=== PATIENT | female | born 1985 | race Two or more races ===

== ENCOUNTER 2016-12-14 10:44 | Emergency (ER) | payer OTHER ==
[~2016-12-14] VITALS: Ht 157.5 cm; Wt 65.8 kg
[2016-12-14 11:16] VITALS: BP 113/73
[2016-12-14] MEDS ORDERED: DEXAMETHASONE SOD PHOS 20 MG/5 ML VIAL. IM ONE (11:30)
[2016-12-14] MEDS ORDERED: PRED50TA PO (11:52)
[2016-12-14] MEDS ORDERED: HYDR25TA PO (11:52)
[2016-12-14] MEDS ORDERED: TRIA15OI TP (11:52)
[2016-12-14] MEDS ORDERED: CETI10TA22 PO (11:52)
--- NOTE | 2016-12-14 11:52 | PHYS DOC ---
Past Medical History Past Medical History: Other Additional Past Medical Histor: EPILEPSY Past Surgical History: Cholecystectomy, Other Additional Past Surgical Histo: BREAST AUGMENTATION, ABD TUCK Alcohol Use: Rarely Drug Use: None Adult General Chief Complaint Chief Complaint: SKIN RASH/ABSCESS HPI HPI Patient is a 31 year old female who presents with a pruritic rash that began 2 days ago after going hiking. Review of Systems Review of Systems Constitutional: Denies fever or chills [] Eyes: Denies change in visual acuity, redness, or eye pain [] Musculoskeletal: Denies back pain or joint pain [] Integument: rash Neurologic: Denies headache, focal weakness or sensory changes [] Endocrine: Denies polyuria or polydipsia [] Current Medications Current Medications Current Medications Medications (Trade) Dose Ordered Sig/Abdulaziz Start Time Stop Time Status Last Admin Dose Admin Dexamethasone Sodium Phosphate (Decadron) 10 mg 1X ONCE 12/14/16 11:30 12/14/16 11:32 DC Allergies Allergies Allergies Coded Allergies Type Severity Reaction Last Updated Verified Penicillins Allergy Severe Anaphylaxis 12/14/16 Yes cephalexin Allergy Severe Anaphylaxis 12/14/16 Yes nitrofurantoin Allergy Severe Anaphylaxis 12/14/16 Yes zolpidem Allergy Severe Anaphylaxis 12/14/16 Yes Physical Exam Physical Exam Constitutional: Well developed, well nourished, no acute distress, non-toxic appearance. [] HENT: Normocephalic, atraumatic, bilateral external ears normal, oropharynx moist, no oral exudates, nose normal. [] Skin: Patient has mild amount of erythematous macular rash on the right buttock. Back: No tenderness, no CVA tenderness. [] Extremities: No tenderness, no cyanosis, no clubbing, ROM intact, no edema. [] Neurologic: Alert and oriented X 3, normal motor function, normal sensory function, no focal deficits noted. [] Psychologic: Affect normal, judgement normal, mood normal. [] Current Patient Data Vital Signs Vital Signs Date Time Temp Pulse Resp B/P (MAP) Pulse Ox O2 Delivery O2 Flow Rate FiO2 12/14/16 11:16 98.5 87 16 100 Room Air 98.5 EKG EKG [] Radiology/Procedures Radiology/Procedures [] Course & Med Decision Making Course & Med Decision Making Pertinent Labs and Imaging studies reviewed. (See chart for details) Patient has contact dermatitis rash due to unknown cause. She went hiking there is a chance that could be insect bite though she denies any possibility this could be insect bites. Discharged with hydroxyzine, zyrtec, prednisone and triamcinolone cream. Follow-up with PCP in 2 weeks if symptoms continue. Dragon Disclaimer Dragon Disclaimer This electronic medical record was generated, in whole or in part, using a voice recognition dictation system. Departure Departure Impression: Primary Impression: Contact dermatitis Disposition: HOME, SELF-CARE Condition: STABLE Referrals: NO PCP (PCP) BERT DOWNING MD Follow-up in 2 weeks if symptoms continue Patient Instructions: Contact Dermatitis, [id number] Additional Instructions: You were seen with a rash after going hiking. We put you on medications to help with this rash. Follow-up with the provided pet care attendant or your own doctor in 2 weeks if symptoms continue. Scripts Hydroxyzine Hcl (HYDROXYZINE HCL) 25 Mg Tablet 1 TAB PO TID Y for ITCHING, #30 TAB 1 Refill Prov: CARLY GOLDEN APRN 12/14/16 Triamcinolone Acetonide (TRIAMCINOLONE ACETONIDE 0.1% OINT) 15 Gm Oint...g. 1 SEVERINO TP BID for WOUND CARE, #1 TUBE MIX WITH EUCERIN DIRECTED BY PHYSICIAN Prov: CARLY GOLDEN APRN 12/14/16 Cetirizine Hcl (ZYRTEC) 10 Mg Tablet 1 TAB PO DAILY, #30 TAB 3 Refills Prov: CARLY GOLDEN APRN 12/14/16 Prednisone (PREDNISONE) 50 Mg Tablet 1 TAB PO DAILY, #5 TAB Prov: CARLY GOLDEN APRN 12/14/16 Problem Qualifiers Primary Impression: Contact dermatitis Contact dermatitis type: unspecified Contact dermatitis trigger: unspecified trigger Qualified Codes: L25.9 - Unspecified contact dermatitis, unspecified cause CARLY GOLDEN APRN Dec 14, 2016 11:52
== END 2016-12-14 11:55 | disposition home or self-care (01) ==
LOC: ER 10:44
DX: L25.9 Unspecified contact dermatitis, unspecified cause (principal); G40.909 Epilepsy, unspecified, not intractable, without status epilepticus; Z88.0 Allergy status to penicillin; Z88.1 Allergy status to other antibiotic agents; Z88.8 Allergy status to other drugs, medicaments and biological substances
CPT/HCPCS: 99283

== ENCOUNTER 2017-06-14 09:02 | Emergency (ER) | payer OTHER ==
[2017-06-14] MEDS: IPRATRPIUM/ALBUTEROL 0.5/2.5MG 3 ML NEBU. NEB (09:26)
[2017-06-14] MEDS: ACETAMINOPHEN 500 MG TABLET PO (09:52)
[2017-06-14 10:02] LABS: NEGATIVE OBC STREP NEG; POSITIVE OBC STREP POS
== END 2017-06-14 09:54 | disposition home or self-care (01) ==
LOC: ER 09:02
DX: J45.901 Unspecified asthma with (acute) exacerbation (principal); G40.909 Epilepsy, unspecified, not intractable, without status epilepticus; Z88.0 Allergy status to penicillin; Z90.49 Acquired absence of other specified parts of digestive tract; Z79.899 Other long term (current) drug therapy; Z88.1 Allergy status to other antibiotic agents; Z88.8 Allergy status to other drugs, medicaments and biological substances
CPT/HCPCS: 87070; 87880; 94640; 99283-25; J7620

== ENCOUNTER 2017-06-26 08:14 | Emergency (ER) | payer OTHER ==
[2017-06-26] MEDS ORDERED: 0.9 % SODIUM CHLORIDE 10 ML DISP.SYRIN. IV (08:30)
[2017-06-26 08:50] LABS: URINE HCG POC HCG NEGATIVE (Negative)
[2017-06-26] MEDS: IV NORMAL SALINE 1000ML BAG 1,000 ML IV (08:52)
[2017-06-26] MEDS: KETOROLAC 30 MG/ML INJ. IV (08:53)
[2017-06-26] MEDS: ONDANSETRON PF 4 MG/2 ML VIAL. IV (08:53)
[2017-06-26] MEDS: diphenhydrAMINE 50 MG/ML VIAL IVP (08:53)
[2017-06-26 09:17] LABS: BILIRUBIN,URINE NEGATIVE (NEG); CLARITY,URINE TURBID; COLOR,URINE YELLOW; GLUCOSE,URINE NEGATIVE (NEG); NITRITE,URINE POSITIVE (NEG); PH,URINE 5.5; PROTEIN,URINE NEGATIVE (NEG-TRACE); UROBILINOGEN,URINE 0.2 mg/dL (0.2 mg/dL)
[2017-06-26 09:42] LABS: BACTERIA,URINE MANY /HPF (0-FEW); SQUAMOUS EPITHELIAL CELL,UR FEW /LPF
[2017-06-26 09:43] LABS: RBC,URINE 0 /HPF (0-2); WBC,URINE OCC /HPF (0-4)
[2017-06-26] MEDS: SUMAtriptan. 6 MG/0.5 ML VIAL SQ (10:00)
[2017-06-26] MEDS: PROCHLORPERAZINE 10 MG/2 ML VIAL. IV (10:01)
== END 2017-06-26 10:33 | disposition home or self-care (01) ==
LOC: ER 08:14
DX: G43.909 Migraine, unspecified, not intractable, without status migrainosus (principal); F07.81 Postconcussional syndrome; J45.909 Unspecified asthma, uncomplicated; G40.909 Epilepsy, unspecified, not intractable, without status epilepticus; Z90.49 Acquired absence of other specified parts of digestive tract; Z88.0 Allergy status to penicillin; Z88.8 Allergy status to other drugs, medicaments and biological substances; Z88.1 Allergy status to other antibiotic agents; W00.1XXA Fall from stairs and steps due to ice and snow, initial encounter; Y93.89 Activity, other specified; Y92.89 Other specified places as the place of occurrence of the external cause; Y99.8 Other external cause status
CPT/HCPCS: 70450; 81001; 81025; 96361; 96372; 96374; 96375; 99285-25; J0780; J1200; J1885; J2405; J3030; J7030

== ENCOUNTER 2017-08-18 14:17 | Emergency (ER) | payer OTHER ==
[2017-08-18] MEDS: diphenhydrAMINE HCL 25 MG CAPSULE PO (15:16)
[2017-08-18] MEDS: HYDROcodone/APAP 5/325MG 1 TAB TABLET PO (15:17)
[2017-08-18] MEDS: METOCLOPRAMIDE 10 MG TABLET. PO (15:17)
[2017-08-18] MEDS: KETOROLAC 60 MG/2 ML INJ. IM (15:30)
[2017-08-18] MEDS: SUMAtriptan. 6 MG/0.5 ML VIAL SQ (15:58)
== END 2017-08-18 16:14 | disposition home or self-care (01) ==
LOC: ER 14:17
DX: G43.909 Migraine, unspecified, not intractable, without status migrainosus (principal); J45.909 Unspecified asthma, uncomplicated; G40.909 Epilepsy, unspecified, not intractable, without status epilepticus; Z88.0 Allergy status to penicillin; Z90.49 Acquired absence of other specified parts of digestive tract; Z88.1 Allergy status to other antibiotic agents; Z88.8 Allergy status to other drugs, medicaments and biological substances
CPT/HCPCS: 96372; 99284; J1885; J3030; J8597; Q0163